=== PATIENT | female | born 2000 | race Caucasian/White ===

== ENCOUNTER 2023-11-01 17:33 | Emergency (ER) | payer BC ==
[2023-11-01 17:43] VITALS: BP 120/60; PULSE 82; RESP 15; TEMP 99.1; BMI 18.6
[2023-11-01] MEDS ORDERED: DIPHTH,PERTUSS(ACELL),TET 0.5 ML DISP.SYRIN IM ONE ×2 (18:02→18:05)
== END 2023-11-01 18:49 | disposition home or self-care (01) ==
LOC: FER 17:33
PROC: 0HQ1XZZ Repair Face Skin, External Approach (ICD-10-PCS; principal; 2023-11-01)
PROC: 3E0234Z Introduction of Serum, Toxoid and Vaccine into Muscle, Percutaneous Approach (ICD-10-PCS; 2023-11-01)
DX: S01.112A Laceration without foreign body of left eyelid and periocular area, initial encounter (principal); W22.8XXA Striking against or struck by other objects, initial encounter
CPT/HCPCS: 90715; 99282-25